=== PATIENT | female | born 1995 | race African-American/Black ===

== ENCOUNTER 2017-11-27 11:59 | Emergency (ER) | payer OTHER ==
[~2017-11-27] VITALS: Ht 160 cm; Wt 100.0 kg
[~2017-11-27 11:59] MED LIST: HYDR-523 PO
[2017-11-27 14:04] LABS: CLARITY URINE TURBID (CLEAR); COLOR URINE YELLOW (YELLOW); KETONES URINE NEGATIVE (NEGATIVE); LEUKOCYTE ESTERASE URINE 3+ (NEGATIVE); NITRITE URINE NEGATIVE (NEGATIVE); OCCULT BLOOD URINE 3+ (NEGATIVE); PH URINE 7.5 (4.5-8.0); PROTEIN URINE 3+ (NEGATIVE); SPECIFIC GRAVITY URINE 1.022 (1.005-1.030); UROBILINOGEN URINE 0.2 E.U./dL (0.2-1.0)
[2017-11-27] MEDS ORDERED: KETOROLAC 60MG/2ML VIAL IM STA (14:35)
[2017-11-27 15:20] LABS: BASOPHILS % 1.2 % (0.0-2.0); EOSINOPHILS % 0.9 % (0.0-5.0); HEMATOCRIT. 38.7 % (36.0-48.0); HEMOGLOBIN. 12.4 g/dL (12.0-16.0); LYMPHOCYTES % 26.2 % (20.0-50.0); MEAN CORPUSCULAR VOLUME 81.4 fL (81.0-99.0); MEAN PLATELET VOLUME 7.8 fl (7.4-10.4); MONOCYTES % 7.1 % (2.0-8.0); NEUTROPHILS % 64.6 % (40.0-76.0); PLATELET 322 x1000/uL (130-400); RED BLOOD CELL COUNT 4.75 mill/uL (4.2-5.4); RED CELL DISTRIBUTION WIDTH 15.3 % (11.6-14.6)
[2017-11-27 15:22] LABS: CHLORIDE 106 mEq/L (98-107)
[2017-11-27 17:44] VITALS: BP 123/59
[2017-11-27] MEDS ORDERED: ACETAMINOPHEN 325MG TABLET PO ONE (17:45)
== END 2017-11-27 17:54 | disposition home or self-care (01) ==
LOC: ER 11:59
DX: N39.0 Urinary tract infection, site not specified (principal); F12.10 Cannabis abuse, uncomplicated; Z98.890 Other specified postprocedural states
CPT/HCPCS: 36415; 76830; 76856; 80053; 81003; 81025; 83690; 85025; 87077; 87086; 87186; 96372; 99285; J1885

== ENCOUNTER 2018-05-15 13:18 | Emergency (ER) | payer MEDICAID, OTHER ==
[~2018-05-15] VITALS: Ht 167.6 cm; Wt 80.0 kg
[2018-05-15] MEDS ORDERED: ONDANSETRON HCL 4MG/2ML VIAL IV STA (14:56)
[2018-05-15] MEDS ORDERED: SODIUM CHLORIDE 0.9% 1,000 ML IV ONE (14:56)
[2018-05-15 17:40] LABS: BASOPHILS % 0.3 % (0.0-2.0); EOSINOPHILS % 0.2 % (0.0-5.0); HEMATOCRIT. 38.3 % (36.0-48.0); HEMOGLOBIN. 12.8 g/dL (12.0-16.0); LYMPHOCYTES % 18.1 % (20.0-50.0); MEAN CORPUSCULAR HEMOGLOBIN 27.5 pg (28.0-32.0); MEAN CORPUSCULAR VOLUME 82.3 fL (81.0-99.0); MEAN PLATELET VOLUME 8.8 fl (7.4-10.4); MONOCYTES % 4.8 % (2.0-8.0); NEUTROPHILS % 76.6 % (40.0-76.0); PLATELET 244 x1000/uL (130-400); RED BLOOD CELL COUNT 4.66 mill/uL (4.2-5.4); RED CELL DISTRIBUTION WIDTH 16.2 % (11.6-14.6)
[2018-05-15 17:46] LABS: CHLORIDE 103 mEq/L (98-107)
[2018-05-15 17:47] LABS: INR 0.9; PROTHROMBIN TIME 9.5 sec (9.1-11.1)
[2018-05-15 17:51] LABS: ETHANOL BLOOD < 10 mg/dL
[2018-05-15 17:55] LABS: CREATINE KINASE 26 IU/L (26-192)
[2018-05-15 18:04] LABS: CLARITY URINE CLEAR (CLEAR); COLOR URINE YELLOW (YELLOW); KETONES URINE NEGATIVE (NEGATIVE); LEUKOCYTE ESTERASE URINE NEGATIVE (NEGATIVE); NITRITE URINE NEGATIVE (NEGATIVE); OCCULT BLOOD URINE NEGATIVE (NEGATIVE); PH URINE 7.5 (4.5-8.0); PROTEIN URINE NEGATIVE (NEGATIVE); SPECIFIC GRAVITY URINE 1.014 (1.005-1.030); UROBILINOGEN URINE 0.2 E.U./dL (0.2-1.0)
[2018-05-15 18:10] LABS: B-HCG QUANTITATIVE 22131 mIU/mL (<3)
[2018-05-15 18:20] LABS: *AMPHETAMINES SCREEN URINE NEGATIVE (NEGATIVE); *BARBITURATES SCREEN URINE NEGATIVE (NEGATIVE); *BENZODIAZEPINES SCREEN URINE NEGATIVE (NEGATIVE); *COCAINE SCREEN URINE NEGATIVE (NEGATIVE)
[2018-05-15 18:21] LABS: METHADONE URINE SCREEN NEGATIVE (NEGATIVE); OPIATES URINE SCREEN NEGATIVE (NEGATIVE); PHENCYCLIDINE URINE SCREEN NEGATIVE (NEGATIVE)
[2018-05-15 18:23] LABS: CANNABINOID URINE SCREEN PRESUMTIVE POSITIVE (NEGATIVE)
[2018-05-15 18:46] VITALS: BP 107/44
== END 2018-05-15 19:11 | disposition home or self-care (01) ==
LOC: ER 13:18
DX: O21.9 Vomiting of pregnancy, unspecified (principal); R42 Dizziness and giddiness; R11.0 Nausea; F12.10 Cannabis abuse, uncomplicated; Z3A.14 14 weeks gestation of pregnancy; R10.2 Pelvic and perineal pain; R79.1 Abnormal coagulation profile; Z79.899 Other long term (current) drug therapy
CPT/HCPCS: 36415; 76805; 80053; 80305; 81003; 82550; 83690; 84484; 84702; 85025; 85610; 86850; 86900; 86901; 93005; 96361; 96374; 99285; G0482; J2405; J7030; Z7610

== ENCOUNTER 2018-08-31 11:52 | Observation (INO) | payer MEDICAID, OTHER ==
[~2018-08-31] VITALS: Ht 160 cm; Wt 99.3 kg
[2018-08-31 12:16] VITALS: BP 110/69
[2018-08-31] MEDS ORDERED: PNV1TABL50 PO (14:41)
== END 2018-08-31 15:11 | disposition home or self-care (01) ==
LOC: ER 11:52 → L&D 12:47
PROVIDERS: ADMIT Obstetrics & Gynecology; ATTEND Obstetrics & Gynecology
DX: O21.2 Late vomiting of pregnancy (principal); O26.893 Other specified pregnancy related conditions, third trimester; M54.9 Dorsalgia, unspecified; Z3A.31 31 weeks gestation of pregnancy
CPT/HCPCS: 99281; G0378

== ENCOUNTER 2023-07-25 12:56 | Emergency (ER) | payer OTHER ==
[~2023-07-25] VITALS: Ht 162.6 cm; Wt 116.0 kg
[~2023-07-25 12:56] MED LIST changes: -HYDR-523 PO; +PNV1TABL50 PO
[2023-07-25 12:58] VITALS: O2SAT 97
[2023-07-25] MEDS ORDERED: IBUPROFEN 600MG TABLET PO ONE (16:00)
[2023-07-25] MEDS ORDERED: ACETAMINOPHEN 325MG TABLET PO ONE (16:00)
[2023-07-25] MEDS ORDERED: PENICILLIN G BENZATHINE 1,200,000 UNITS/2ML SYR IM ONE (16:00)
[2023-07-25] MEDS ORDERED: NAPR220C61 MT (16:53)
[2023-07-25 17:45] VITALS: BP 120/74; PULSE 101; RESP 18; TEMP 97.9
== END 2023-07-25 17:46 | disposition home or self-care (01) ==
LOC: ER 13:03
DX: J02.0 Streptococcal pharyngitis (principal); Z98.890 Other specified postprocedural states
CPT/HCPCS: 87430; 96372; 99283; J0561; Z7610

== ENCOUNTER 2025-08-29 07:24 | Emergency (ER) | payer SELFPAY ==
[~2025-08-29] VITALS: Ht 170.2 cm; Wt 110.0 kg
[~2025-08-29 07:24] MED LIST changes: +NAPR220C61 MT
[2025-08-29 07:32] VITALS: O2SAT 95
[2025-08-29 08:52] LABS: CLARITY URINE CLEAR (CLEAR); COLOR URINE YELLOW (YELLOW); GLUCOSE URINE NEGATIVE (NEGATIVE); KETONES URINE NEGATIVE (NEGATIVE); LEUKOCYTE ESTERASE URINE TRACE (NEGATIVE); NITRITE URINE NEGATIVE (NEGATIVE); OCCULT BLOOD URINE NEGATIVE (NEGATIVE); PH URINE 6.0 (4.5-8.0); PROTEIN URINE TRACE (NEGATIVE); SPECIFIC GRAVITY URINE 1.026 (1.005-1.030); UROBILINOGEN URINE 0.2 E.U./dL (0.2-1.0)
[2025-08-29 09:29] LABS: SQUAMOUS EPITHELIAL CELL URINE 2+ /lpf (RARE/1+)
[2025-08-29 09:30] LABS: BACTERIA URINE 3+; RBC URINE NONE SEEN /hpf (0-2); WBC URINE 0-2 /hpf (0-2)
[2025-08-29] MEDS ORDERED: METR70GE27 VG (12:57)
[2025-08-29 13:10] VITALS: BP 150/96; PULSE 100; RESP 18; TEMP 36.8; O2SAT 98
== END 2025-08-29 13:15 | disposition home or self-care (01) ==
LOC: ER 07:24
DX: N76.0 Acute vaginitis (principal); B96.89 Other specified bacterial agents as the cause of diseases classified elsewhere
CPT/HCPCS: 81003; 81025; 87210; 99283